=== PATIENT | male | born 1940 | race Caucasian/White ===

== ENCOUNTER 2018-06-20 19:18 | Inpatient (IN) | payer OTHER ==
[~2018-06-20] VITALS: Ht 180.3 cm; Wt 78.0 kg
[~2018-06-20 19:18] MED LIST: ASPI81CH PO; ATOR40TA PO; CARV3.125 PO; LISI5 PO; Novolog100 UNIT/1 SC; Prinivil10 MG PO; UNKNOWN BP MED; ZESTRIL PO; [UNRECOGNIZED DRUG - REMARK]
[2018-06-20 20:33] LABS: BASOPHILS ABSOLUTE AUTO 0.03 K/mm3 (0.00-0.23); BASOPHILS PERCENT AUTO 0 % (0-2); EOSINOPHILS ABSOLUTE AUTO 0.03 K/mm3 (0.00-0.68); EOSINOPHILS PERCENT AUTO 0 % (0-6); Hematocrit 49.9 % (37.0-53.0); Hemoglobin 16.1 g/dL (13.5-17.5); IMMATURE GRAN ABSOLUTE AUTO 0.05 K/mm3 (0.00-0.10); IMMATURE GRAN PERCENT AUTO 0 % (0-1); LYMPHOCYTES ABSOLUTE AUTO 1.15 K/mm3 (0.84-5.20); LYMPHOCYTES PERCENT AUTO 8 % (21-46); MONOCYTES ABSOLUTE AUTO 0.86 K/mm3 (0.16-1.47); MONOCYTES PERCENT AUTO 6 % (4-13); Mean Corpuscular HGB 32.7 pg (26.0-34.0); Mean Corpuscular HGB Conc 32.3 g/dL (31.5-36.5); Mean Corpuscular Volume 101 fL (80-100); Mean Platelet Volume 9.8 fL (9.1-12.4); NEUTROPHILS ABSOLUTE AUTO 11.99 K/mm3 (1.96-9.15); NEUTROPHILS PERCENT AUTO 85 % (41-73); Platelet Count 214 K/mm3 (150-400); RDW Coefficient Variation 12.3 % (11.7-14.2); RDW Standard Deviation 46.4 fL (35.1-46.3); Red Blood Cell Count 4.93 M/mm3 (4.30-5.90); White Blood Cell Count 14.11 K/mm3 (4.00-11.30)
[2018-06-20 20:59] LABS: Alanine Aminotransfer (ALT/SGP 27 U/L (12-78); Albumin, Blood 4.4 g/dL (3.4-5.0); Albumin/Globulin Ratio 1.3 (0.8-1.8); Alk Phos 142 U/L (50-136); Anion Gap 20 mmol/L (6-16); Aspartate Aminotrans (AST/SGOT 18 U/L (12-37); Bilirubin, Total 1.1 mg/dL (0.1-1.0); Blood Urea Nitrogen 25 mg/dL (8-24); Bun/Creatinine Ratio 18.2 (12.0-20.0); CO2, Blood 16 mmol/L (21-32); Calcium, Blood 9.1 mg/dL (8.5-10.1); Chloride, Blood 97 mmol/L (98-108); Creatinine, Blood 1.37 mg/dL (0.60-1.20); Globulin, Blood 3.3 g/dL (2.2-4.0); Glomerular Filtration Rate 54 (60-); Glucose, Blood 526 mg/dL (70-99); Sodium, Blood 133 mmol/L (136-145); Total Protein, Blood 7.7 g/dL (6.4-8.2); Troponin I <0.015 ng/mL (0.000-0.040)
[2018-06-20 21:15] LABS: Beta-hydroxybutyrate 67.6 mg/dL (0.2-2.8)
[2018-06-20 22:37] LABS: Base Excess Venous -16.3 mmol/L; Bicarbonate Venous 13.1 mmol/L (24.0-30.0); PCO2 Venous 35.8 mmHg (38-42); pH Blood Venous 7.15 (7.34-7.37)
--- NOTE | 2018-06-21 01:51 | NUR ---
ASSUMING CARE RECEIVED PT REPORT FROM ER, RN. PT IS BEING ADMITTED DUE TO DKA. PT IS ALERT AND ORIENTED AT THE TIME OF ARRIVAL TO THE UNIT. PT WAS TRASFERED TO UNIT VIA STRETCHER. PT ABLE TO TRANSFER SELF TO ICU BED WITH MINIMAL ASSISTANCE. AT THE TIME OF ARRIVAL TO UNIT PT IS COMPLETING 2ND BOLUS OF NS. AFTER COMPLETION OF BOLUS NS WAS STARTED AT 100ML/HR. INSULIN GTT IS SET FOR 4UNITS/HR AT THE TIME OF ARRIVAL TO THE UNIT. PT IS ON ROOM AIR WITH SPO2 MAINTAINING IN THE HIGH 90'S. PT IS IN NSR TO SINUS TACH IN THE 100'S AT THIS TIME. PT APPEARS TO HAVE A MURRMUR. ALL PULSES PRESENT PALPABLE AND EQUAL. PT BP IS IN THE 110-130'S AT THIS TIME. PER REPORT PT WAS NAUSEOUS IN THE ER AND PROVIDED ZOFRAN AND REGLAN. PT DENIES NAUSEA AT THIS TIME. PT WAS PROVIDED FUL VACCINE SHORTLY AFTER ARRIVAL TO THE UNIT. ADMIT HX, MED REC, AND ADMISSION ASSESSMENT COMPLETE. ASSUMED CARE OF PT AT THE TIME OF ARRIVAL TO THE UNIT. WILL CONTINUE TO MONITOR PT.
[2018-06-21 03:37] LABS: Source, Urine Clean Catch
[2018-06-21 03:39] LABS: Bilirubin, Urine Neg (Neg); Blood, Urine 1+ (Neg); Glucose Qualitative, Urine 4+ (Neg); Ketones, Urine 4+ (Neg); Leukocyte Esterase, Urine Neg (Neg); Nitrite, Urine Neg (Neg); Protein, Urine 2+ (Neg); Specific Gravity, Urine 1.025 (1.003-1.022); Urobilinogen, Urine NORM (Normal)
[2018-06-21 03:54] LABS: Appearance, Urine Clear (Clear); Color, Urine Yellow (P-Yellow)
[2018-06-21 03:55] LABS: Bacteria Rare /hpf; Mucus Light (0-Heavy); Red Blood Cells, Urine 0-2 /hpf (0-2); Squamous Epithelial Cells Not Seen /hpf (Few); White Blood Cells, Urine 0-2 /hpf (0-5)
--- NOTE | 2018-06-21 04:38 | NUR ---
FLUID CHANGE. PT CBG WAS 227 AT APPROX 0425. PT NS AT 100 WAS REDUCED TO TKO FOR INFUSION OF INSULIN AND D5 1/2 NS WAS STARTED AT 75ML/HR PER ORDERS. PT INSULIN WAS DECREASED FROM 4 TO 2. WILL CONTINUE TO MONITOR PT.
[2018-06-21 04:48] LABS: Hematocrit 40.2 % (37.0-53.0); Hemoglobin 13.5 g/dL (13.5-17.5); Mean Corpuscular HGB 33.1 pg (26.0-34.0); Mean Corpuscular HGB Conc 33.6 g/dL (31.5-36.5); Mean Corpuscular Volume 99 fL (80-100); Mean Platelet Volume 9.3 fL (9.1-12.4); Platelet Count 169 K/mm3 (150-400); RDW Coefficient Variation 12.4 % (11.7-14.2); RDW Standard Deviation 45.2 fL (35.1-46.3); Red Blood Cell Count 4.08 M/mm3 (4.30-5.90)
[2018-06-21 05:08] LABS: Albumin, Blood 3.4 g/dL (3.4-5.0); Albumin/Globulin Ratio 1.3 (0.8-1.8); Bilirubin, Total 0.6 mg/dL (0.1-1.0); Calcium, Blood 7.9 mg/dL (8.5-10.1); Creatinine, Blood 1.35 mg/dL (0.60-1.20); Globulin, Blood 2.7 g/dL (2.2-4.0); Potassium, Blood 4.4 mmol/L (3.5-5.5); Total Protein, Blood 6.1 g/dL (6.4-8.2)
[2018-06-21 05:17] LABS: Troponin I 1.07 ng/mL (0.000-0.040)
--- NOTE | 2018-06-21 06:08 | NUR ---
SHIFT SUMMARY NOTE PT HAS REMAINED ALERT AND ORIENTED THROUGHOUT THE NIGHT WHILE AWAKE. PT REMAINS ON INSULIN GTT AT THIS TIME. INSULIN GTT IS CURRENTLY RUNNING AT 2.5 U/HR. PT IS RECEIVING D5 1/2 NS AT A RATE OF 75ML/HR. WITH MORNING LABS A CRITICAL HIGH TROPONIN AT 1.[address] KRISHNAMURTHY CALLED AND INFORMED OF TROPONIN. INSTRUCTIONS RECEIVED TO ENSURE THAT 2D ECHO ORDER IS IN PLACE. 2D ECHO ORDER IS IN PLACE IN CHART AT THIS TIME. PT STATES THAT HE "FEELS A LOT BETTER" THAN HE DID WHEN HE FIRST CAME TO THE HOSPITAL. PT DENIES ANY ONGOING NAUSEA OR PAIN AT THIS TIME. PT HAS REMAINED ABLE TO REPOSITION SELF IN BED WITHOUT ASSISTANCE AND MAKE NEEDS KNOWN. WILL REPORT OFF TO ONCOMING DAY SHIFT NURSE.
--- NOTE | 2018-06-21 09:32 | NUR ---
PT RESTING W/O CARDICA, GI OR RESP. DISTRESS. PT IS SETTING UP EATING. HAS HAD ECHOCARD. VSS.
--- NOTE | 2018-06-21 12:14 | NUR ---
Echocardiogram completed.
[2018-06-21 13:06] LABS: Troponin I 2.4 ng/mL (0.000-0.040)
[2018-06-21 16:06] LABS: International Normalized Ratio 1.05; Prothrombin Time Results 10.8 Sec (9.7-11.5)
--- NOTE | 2018-06-21 18:39 | NUR ---
PT HAS COVERED CARB COUNT PER PERSONAL PUMP THIS MEAL. PT HAS NOT HAD ANY CP THIS SHIFT AND VSS. HEPARIN GTT AT 13U, D51/2 AT 75, INSULIN GTT WAS REMOVED AT 1700 WIHT CBG OF 85 AND PERSONAL PUMP STARTED SHORTLY AFTER. PT HAS BEEN EXPLAINED COOPERATIVE METHOD OF MANNAGING BLOOD SUGARS IN HOSP. PT HAS BEEN VERY A/O AND PLEASANT THIS SHIFT. WAS IN TO DELIVER INSULIN PUMP TUBING.
--- NOTE | 2018-06-21 19:06 | NUR ---
Mr. Castaneda has a rohit arley that brings him hope/comfort. He tells me he understands what brought him here and knows what needs to happen to prevent re-hospitalization. His was present and appears loving and supportive. No fears or concerns presented. Both were appreciaitive of prayer and gentle spiritual direction. I will remain available.
--- NOTE | 2018-06-21 20:18 | NUR ---
ASSUMED CARE OF PT. REPORT RECEIVED AT BEDSIDE. PT PRESENTS IN BED. ALERT AND ORIENTED. PLEASANT AND COOPERATIVE WITH CARE AND ASSESSMENT. PT UP TO TOILET TO ATTEMPT BM. NO CHEST PAIN OR PRESSURE. NO VERTIGO OR DYSPNEA. PT VOIDS Q.S. SPOT CHECK OF BLOOD GLUCOSE 240. WILL RECHECK AT HS AND TREAT ACCORDINGLY. PT HAS BASAL RATE ON INSULIN PUMP ACTIVATED. PT ALSO RECEIVING LAST OF 2 LITERS D5 1/2 NS. WILL CONTINUE TO MONITOR PT. WILL REVIEW CHART AND PLAN OF CARE FOR THIS PT.
--- NOTE | 2018-06-22 01:29 | NUR ---
PT HAS BEEN UP TO COMMODE SEVERAL TIMES THIS EVENING. HAS NOT HAD ANY COMPLAINTS OF CHEST PAIN OR PRESSURE. CONTINUES ON HEPARIN DRIP ORDERED. NO S/S BLEEDING TO NOTE. PT HAS NO COMPLAINTS OF DYSPNEA OR VERTIGO. PT CONTINUES WITH INSULIN PUMP AT HIS BASAL RATE. HAVE COVERED ELEVATED BLOOD GLUCOSE WITH S/S INSULIN. TEACHING DONE ON DIABETES AND MEAL PLANNING. ALSO DISCUSSED HIS PROPOSED STRESS TEST. NPO AFTER MIDNIGHT. PT AWARE AND IS IN AGREEMENT. WILL CONTINUE TO MONITOR PT. NO CHANGES NOTED PER CARDIAC MONITORING.
--- NOTE | 2018-06-22 03:51 | NUR ---
UNFORTUNATELY, PT WAS INCONTINENT IN BED. HE STATES THIS OCCURS OCCASSIONALY SINCE HE HAD PROSTATE SURGERY. DOES HAVE SOME ISSUES WITH MANAGING HIS IV'S AND CARDIAC LEADS. ASSISTED PT. AGAIN DID SPOT CHECK OF BLOOD GLUCOSE. SEE FLOWSHEET. PT CONTINUES WITHOUT CHEST PAIN OR PRESSURE.
--- NOTE | 2018-06-22 05:23 | NUR ---
PT HAS MAINTAINED THROUGHOUT THE NIGHT OFF INSULIN DRIP. SEE LAB FLOWSHEET FOR GLUCOSE VALUES. PT TEACHING HAS BEEN DONE CONCERNING DIABETES, INSULIN INTERVENTION, AND HEPARIN DRIP. PT CONTINUES ON HEPARIN WITHOUT SIGNS OF BLEEDING. PT TO HAVE STRESS TEST THIS AM. HAS BEEN NPO SINCE 2400. NO COMPLAINTS OF CHEST PAIN OR PRESSURE. WILL CONTINUE TO MONITOR PT, AND WILL REPORT OFF TO ONCOMING RN.
[2018-06-22 05:30] LABS: BASOPHILS ABSOLUTE AUTO 0.02 K/mm3 (0.00-0.23); BASOPHILS PERCENT AUTO 0 % (0-2); EOSINOPHILS ABSOLUTE AUTO 0.17 K/mm3 (0.00-0.68); EOSINOPHILS PERCENT AUTO 2 % (0-6); Hematocrit 38.3 % (37.0-53.0); Hemoglobin 12.6 g/dL (13.5-17.5); IMMATURE GRAN ABSOLUTE AUTO 0.02 K/mm3 (0.00-0.10); IMMATURE GRAN PERCENT AUTO 0 % (0-1); LYMPHOCYTES ABSOLUTE AUTO 1.92 K/mm3 (0.84-5.20); LYMPHOCYTES PERCENT AUTO 25 % (21-46); MONOCYTES ABSOLUTE AUTO 0.59 K/mm3 (0.16-1.47); MONOCYTES PERCENT AUTO 8 % (4-13); Mean Corpuscular HGB 32.1 pg (26.0-34.0); Mean Corpuscular HGB Conc 32.9 g/dL (31.5-36.5); Mean Corpuscular Volume 98 fL (80-100); Mean Platelet Volume 9.3 fL (9.1-12.4); NEUTROPHILS ABSOLUTE AUTO 5.06 K/mm3 (1.96-9.15); NEUTROPHILS PERCENT AUTO 65 % (41-73); Platelet Count 144 K/mm3 (150-400); RDW Coefficient Variation 12.8 % (11.7-14.2); RDW Standard Deviation 45.7 fL (35.1-46.3); Red Blood Cell Count 3.92 M/mm3 (4.30-5.90); White Blood Cell Count 7.78 K/mm3 (4.00-11.30)
[2018-06-22 05:58] LABS: Anion Gap 7 mmol/L (6-16); Blood Urea Nitrogen 25 mg/dL (8-24); CO2, Blood 25 mmol/L (21-32); Calcium, Blood 7.8 mg/dL (8.5-10.1); Chloride, Blood 109 mmol/L (98-108); Creatinine, Blood 1.19 mg/dL (0.60-1.20); Glomerular Filtration Rate >60 (60-); Glucose, Blood 178 mg/dL (70-99); Phosphorus, Blood 3.2 mg/dL (2.5-4.9); Potassium, Blood 4.5 mmol/L (3.5-5.5); Sodium, Blood 141 mmol/L (136-145)
[2018-06-22 06:18] LABS: Troponin I 0.984 ng/mL (0.000-0.040)
--- NOTE | 2018-06-22 09:39 | NUR ---
PTHAS BEEN A/O. NUC. MED HAS BEEN IN AT [id number] TO INJECT FOR STRESS TEST. PT DENIES PAIN OR DISTRESS OTHER THAN OVER CBG CHALLENGES. PT VS NOTED.
--- NOTE | 2018-06-22 10:00 | NUR ---
PT CHANGED TO PCU STATUS AND W/C DOWN TO NUC. MED. PER ZAK. PT REMAINS ON HEPARIN GTT AT 14UNITS.
--- NOTE | 2018-06-22 14:15 | NUR ---
PT HAS BEEN RESTING WELL THIS DAY AND IS CURRENTLY IN BED WAITING FOR NUC MED STUDY. PT HAS BEEN IN CHAIR AND HAS DONE WELL. CBG STATUS NOTED AND WILL FOLLOW ABLE TO ASSIST.
--- NOTE | 2018-06-22 15:02 | NUR ---
PT EDUCATION RE SLIDING SCALE AND PT PUMP DOSING DISCUSSED TO ASSIST PT WITH LONG RANGE TREATMENT AND CORRECTION UNDERSTANDING.
--- NOTE | 2018-06-22 16:41 | NUR ---
PT RETURNED APPROX 1600 FROM NUC. MED SCREEN VIA W/C AND VSS AND RESTING W/O DISTRESS IN CHAIR. IS IN TO VISIT.
--- NOTE | 2018-06-22 18:20 | NUR ---
PT SETTING UP EATING. NO SS INSULIN OR EXTRA TIDM INSULIN GIVEN DUE TO CHANGES IN MEAL SCHEDULE AND TIMES TODAY. PT COVERED MEAL WITH BASAL INSULIN DOSE AND CARB COUNT INSULIN COVERAGE PER PUMP. VSS AND PT HAS BEEN A/O ALL DAY AWAIING ONE DAY STRESS TEST COMPLETION AND RESULTS OF SAME. IS IN TO VISIT.
--- NOTE | 2018-06-22 20:00 | NUR ---
ASSUMED CARE OF PT. REPORT RECEIVED. PT PRESENT IN BED ASLEEP. WILL DEFER ASSESSMENT FOR SHORT PERIOD SO PT CAN REST. PT DID NOT SLEEP WELL PREVIOUS NIGHT. WILL REVIEW CHART AND PLAN OF CARE FOR THIS PT.
--- NOTE | 2018-06-22 22:24 | NUR ---
WHILE VISITING WITH PT AFTER GLUCOSE CHECK PT WAS GIVEN SNACK OF HALF SANDWHICH AND SUGAR FREE TAPIOCCA. PT WAS SWALLOWING A BITE OF SANDWHICH, AND HE FELT HE GOT 'IT STUCK' FOR A MOMENT. COUGHED AND WAS ABLE TO CLEAR AND COMPLETE SWALLOW. INTERESTINGLY DURING THIS TIME, PT DID TRAVIS DOWN TO MID 30'S. PT STATED HE FELT THIS CHEST PRESSURE. PT QUICKLY RECOVERED WITHOUT INTERVENTION AND IS CURRENTLY BACK TO BASELINE. REMAINS IN SINUS RHYTHM WITH OCCASSIONAL PVC. WILL CONTINUE TO MONITOR.
--- NOTE | 2018-06-23 05:36 | NUR ---
PT HAS BEEN ABLE TO REST THROUGH THE NIGHT. DID DO A SPOT CHECK ON GLUCOSE LEVEL REVEALS 219. HAVE DONE MUCH TEACHING ON DIABETES WELL NSTEMI AND POSSIBLE PLAN FOR HIM TO HAVE ANGIOPLASTY. PT STATES HE IS IN BETTER UNDERSTANDING OF WHAT MAY NEED TO TAKE PLACE FOR FURTHER INTERVENTION. WILL CONTINUE TO MONITOR PT, AND WILL GIVE REPORT TO DAREN STERN FOR TRANSFER TO PCU 16. PT MADE AWARE OF PENDING TRANSFER AND IS IN AGREEMENT.
--- NOTE | 2018-06-23 07:17 | NUR ---
SHIFT SUMMARY PATIENT CHEEFUL UPON TRANSFER TO THE FLOOR. REPORT RECIEVED FROM DAREN MARR AT APPROX 0600. PATIENT TRANSFERED TO THE FLOOR SHORTLY AFTER. PATIENT ABLE TO TRANSFER SELF FROM THE WHEELCHAIR TO THE BED. PATIENT ORIENTED TO THE NEW ROOM, UNIT, AND CALL LIGHT. HEPARIN GTT RUNNING PER ORDERS. REPORT GIVEN TO ONCOMING RN.
--- NOTE | 2018-06-23 07:32 | NUR ---
NURSING PCU DAYSHIFT: Assumed care of pt at approx 0700. A/O, pleasant, coopertive w/care. Denies any pain/discomfort. Able to ambulate independently w/o difficulty. Skin is intact w/no breakdown noted. Tele in place, NSR/SB w/first degree block, no c/o CP/pressure, SBP 150's, no noted edema. L/S cta t/o, O2 sat upper 90's on RA, denies dypsnea, no noted cough. Abd SNT, BT+, voiding w/o difficulty per pt. PIV x2, hep gtt infusing as per pharmacy dosing. No s/s of acute distress at this time. Call light in reach and pt is able to use w/o difficulty. Pt had questions regarding insulin dosing, education provided, denies additional questions/needs at this time. Awaiting rounding from PMD, cont to monitor for changes.
[2018-06-23 07:53] LABS: BASOPHILS ABSOLUTE AUTO 0.02 K/mm3 (0.00-0.23); BASOPHILS PERCENT AUTO 0 % (0-2); EOSINOPHILS ABSOLUTE AUTO 0.16 K/mm3 (0.00-0.68); EOSINOPHILS PERCENT AUTO 3 % (0-6); Hematocrit 40.1 % (37.0-53.0); Hemoglobin 13.4 g/dL (13.5-17.5); IMMATURE GRAN ABSOLUTE AUTO 0.01 K/mm3 (0.00-0.10); IMMATURE GRAN PERCENT AUTO 0 % (0-1); LYMPHOCYTES ABSOLUTE AUTO 1.45 K/mm3 (0.84-5.20); LYMPHOCYTES PERCENT AUTO 31 % (21-46); MONOCYTES ABSOLUTE AUTO 0.41 K/mm3 (0.16-1.47); MONOCYTES PERCENT AUTO 9 % (4-13); Mean Corpuscular HGB 32.4 pg (26.0-34.0); Mean Corpuscular HGB Conc 33.4 g/dL (31.5-36.5); Mean Corpuscular Volume 97 fL (80-100); Mean Platelet Volume 9.8 fL (9.1-12.4); NEUTROPHILS ABSOLUTE AUTO 2.66 K/mm3 (1.96-9.15); NEUTROPHILS PERCENT AUTO 57 % (41-73); Platelet Count 151 K/mm3 (150-400); RDW Coefficient Variation 12.5 % (11.7-14.2); RDW Standard Deviation 45.1 fL (35.1-46.3); Red Blood Cell Count 4.13 M/mm3 (4.30-5.90); White Blood Cell Count 4.71 K/mm3 (4.00-11.30)
[2018-06-23 08:10] LABS: Albumin, Blood 3.1 g/dL (3.4-5.0); Anion Gap 6 mmol/L (6-16); Blood Urea Nitrogen 20 mg/dL (8-24); Bun/Creatinine Ratio 19.2 (12.0-20.0); CO2, Blood 28 mmol/L (21-32); Calcium, Blood 8.3 mg/dL (8.5-10.1); Chloride, Blood 106 mmol/L (98-108); Creatinine, Blood 1.04 mg/dL (0.60-1.20); Glomerular Filtration Rate >60 (60-); Glucose, Blood 234 mg/dL (70-99); Phosphorus, Blood 3.4 mg/dL (2.5-4.9); Potassium, Blood 4.5 mmol/L (3.5-5.5); Sodium, Blood 140 mmol/L (136-145)
[2018-06-23 08:18] LABS: Troponin I 0.636 ng/mL (0.000-0.040)
[2018-06-23] MEDS ORDERED: CLOP75 PO (09:57)
[2018-06-23] MEDS ORDERED: BISA10S PR (09:57)
[2018-06-23] MEDS ORDERED: DOCU100 PO (09:59)
[2018-06-23] MEDS ORDERED: INSR10I SC ×2 (10:00→10:02)
[2018-06-23] MEDS ORDERED: NITR.4SL SL (10:04)
[2018-06-23] MEDS ORDERED: METO5A PO (10:05)
[2018-06-23] MEDS ORDERED: Zofran4 MG PO (10:06)
--- NOTE | 2018-06-23 10:43 | NUR ---
NURSING PCU DISCHARGE SUMMARY: No acute changes noted t/o the a.m. Cleared by cardiology, seen by PMD, discharge home d/o received. Rx's faxed to [facility], f/u appts scheduled. Hep gtt discontinued, PIV dc'd w/cath intact. No s/s of acute distress at this time, cont to monitor until discharge is complete.
--- NOTE | 2018-06-23 13:28 | NUR ---
Spiritual care visit conducted. Pateint was in the process of being discharged and I introduced myself and we had a great visit. Patient said that the care he received at [facility] was exceptional and that the kindness and care he was given was "over the top." I conducted a life review, explored spiritual beliefs, reinforced helpful attitudes and practices and provided prayer. Patient expressed gratitude and showed signs of an elevated mood.
== END 2018-06-23 13:45 | disposition home or self-care (01) | DRG 637 ==
LOC: ER 19:18 → ICUW 22:57 → ICUE 22:57 → PCU 06-23 06:30
PROVIDERS: Emergency Medicine; Family Medicine; ADMIT Internal Medicine
PROC: 3E0234Z Introduction of Serum, Toxoid and Vaccine into Muscle, Percutaneous Approach (ICD-10-PCS; principal; 2018-06-21)
DX: E10.10 Type 1 diabetes mellitus with ketoacidosis without coma (principal); I21.4 Non-ST elevation (NSTEMI) myocardial infarction; I10 Essential (primary) hypertension; Z23 Encounter for immunization; I25.10 Atherosclerotic heart disease of native coronary artery without angina pectoris; E78.5 Hyperlipidemia, unspecified; E10.40 Type 1 diabetes mellitus with diabetic neuropathy, unspecified; E86.0 Dehydration; R01.1 Cardiac murmur, unspecified; M54.30 Sciatica, unspecified side; D69.6 Thrombocytopenia, unspecified; Z96.41 Presence of insulin pump (external) (internal); Z79.82 Long term (current) use of aspirin
CPT/HCPCS: 36415; 71046; 78452; 80053; 80069; 81001; 82010; 82550; 82803; 82947; 84484; 85025; 85027; 85610; 85730; 90686; 93005; 93010; 93017; 93306; 96361; 96374; 96375; 99285-25; A9500; J0706; J1644; J1650; J1815; J2405; J2765; J2785; J7030; J7042

== ENCOUNTER 2020-08-15 20:36 | Inpatient (IN) | payer OTHER, MEDICARE ==
[~2020-08-15] VITALS: Ht 188 cm; Wt 99.8 kg
[~2020-08-15 20:36] MED LIST changes: +BISA10S PR; +CLOP75 PO; +DOCU100 PO; +INSR10I SC; +METO5A PO; +NITR.4SL SL; +Zofran4 MG PO
[2020-08-15 20:55] LABS: Calcium, Ionized (POC) 1.08 mmol/L (1.10-1.46); Chloride (POC) 103 mmol/L (98-108); Creatinine (POC) 1.3 mg/dL (0.8-1.3); Glucose (ISTAT POC) 285 mg/dL (70-99); Potassium (POC) 4.1 mmol/L (3.5-5.5); Sodium (POC) 135 mmol/L (135-148); Total CO2 (POC) 20 mmol/L (21-32)
[2020-08-15 21:07] LABS: BASOPHILS ABSOLUTE AUTO 0.08 K/mm3 (0.00-0.23); BASOPHILS PERCENT AUTO 1 % (0-2); EOSINOPHILS ABSOLUTE AUTO 0.09 K/mm3 (0.00-0.68); EOSINOPHILS PERCENT AUTO 1 % (0-6); Hematocrit 50.5 % (37.0-53.0); Hemoglobin 16.4 g/dL (13.5-17.5); IMMATURE GRAN ABSOLUTE AUTO 0.54 K/mm3 (0.00-0.10); IMMATURE GRAN PERCENT AUTO 4 % (0-1); LYMPHOCYTES ABSOLUTE AUTO 7.81 K/mm3 (0.84-5.20); LYMPHOCYTES PERCENT AUTO 63 % (21-46); MONOCYTES ABSOLUTE AUTO 0.36 K/mm3 (0.16-1.47); MONOCYTES PERCENT AUTO 3 % (4-13); Mean Corpuscular HGB 32.8 pg (26.0-34.0); Mean Corpuscular HGB Conc 32.5 g/dL (31.5-36.5); Mean Corpuscular Volume 101 fL (80-100); Mean Platelet Volume 10.1 fL (9.1-12.4); NEUTROPHILS ABSOLUTE AUTO 3.52 K/mm3 (1.96-9.15); NEUTROPHILS PERCENT AUTO 28 % (41-73); NRBC ABSOLUTE 0.07 K/mm3 (0.00-0.02); NRBC Auto 0.6 /100 WBC (0.0-0.2); Platelet Count 133 K/mm3 (150-400); RDW Coefficient Variation 12.7 % (11.7-14.2); RDW Standard Deviation 47.6 fL (35.1-46.3)
[2020-08-15 21:19] LABS: Magnesium, Blood 2.7 mg/dL (1.6-2.4)
[2020-08-15 21:21] LABS: Alanine Aminotransfer (ALT/SGP 234 U/L (12-78); Albumin, Blood 3.2 g/dL (3.4-5.0); Albumin/Globulin Ratio 0.9 (0.8-1.8); Alk Phos 162 U/L (50-136); Anion Gap 15 mmol/L (6-16); Aspartate Aminotrans (AST/SGOT 322 U/L (12-37); Bilirubin, Total 0.7 mg/dL (0.1-1.0); Blood Urea Nitrogen 22 mg/dL (8-24); Bun/Creatinine Ratio 20.8 (12.0-20.0); CO2, Blood 16 mmol/L (21-32); Calcium, Blood 8.1 mg/dL (8.5-10.1); Chloride, Blood 105 mmol/L (98-108); Creatinine, Blood 1.06 mg/dL (0.60-1.20); Globulin, Blood 3.5 g/dL (2.2-4.0); Glomerular Filtration Rate >60 (60-); Glucose, Blood 287 mg/dL (70-99); Potassium, Blood 4.4 mmol/L (3.5-5.5); Sodium, Blood 136 mmol/L (136-145); Total Protein, Blood 6.7 g/dL (6.4-8.2)
[2020-08-15 21:22] LABS: International Normalized Ratio 1.12; Prothrombin Time Results 11.9 Sec (9.7-11.5)
[2020-08-15 21:42] LABS: PCO2 Arterial 45.6 mmHg (35-45); PO2 Arterial 65.6 mmHg (80-100); pH Blood Arterial 7.14 (7.35-7.45)
== END 2020-08-16 00:13 | DRG 215 ==
LOC: ER 20:36 → ICUW 21:20
PROVIDERS: Emergency Medicine; ADMIT Internal Medicine
PROC: 5A1935Z Respiratory Ventilation, Less than 24 Consecutive Hours (ICD-10-PCS; principal; 2020-08-15)
PROC: 02HA3RZ Insertion of Short-term External Heart Assist System into Heart, Percutaneous Approach (ICD-10-PCS; 2020-08-15)
PROC: 5A0221D Assistance with Cardiac Output using Impeller Pump, Continuous (ICD-10-PCS; 2020-08-15)
PROC: 027135Z Dilation of Coronary Artery, Two Arteries with Two Drug-eluting Intraluminal Devices, Percutaneous Approach (ICD-10-PCS; 2020-08-15)
PROC: 5A12012 Performance of Cardiac Output, Single, Manual (ICD-10-PCS; 2020-08-15)
PROC: 4A023N7 Measurement of Cardiac Sampling and Pressure, Left Heart, Percutaneous Approach (ICD-10-PCS; 2020-08-15)
PROC: B2111ZZ Fluoroscopy of Multiple Coronary Arteries using Low Osmolar Contrast (ICD-10-PCS; 2020-08-15)
PROC: 3E033XZ Introduction of Vasopressor into Peripheral Vein, Percutaneous Approach (ICD-10-PCS; 2020-08-15)
PROC: 0W9930Z Drainage of Right Pleural Cavity with Drainage Device, Percutaneous Approach (ICD-10-PCS; 2020-08-16)
DX: I21.3 ST elevation (STEMI) myocardial infarction of unspecified site (principal); J96.01 Acute respiratory failure with hypoxia; I47.2 Ventricular tachycardia; J93.9 Pneumothorax, unspecified; R57.0 Cardiogenic shock; I25.2 Old myocardial infarction; Z79.4 Long term (current) use of insulin; Z79.899 Other long term (current) drug therapy; Z79.82 Long term (current) use of aspirin; I25.10 Atherosclerotic heart disease of native coronary artery without angina pectoris; I44.7 Left bundle-branch block, unspecified; I10 Essential (primary) hypertension; E78.5 Hyperlipidemia, unspecified; E10.40 Type 1 diabetes mellitus with diabetic neuropathy, unspecified; Z85.828 Personal history of other malignant neoplasm of skin; Z90.49 Acquired absence of other specified parts of digestive tract; Z98.890 Other specified postprocedural states; I50.9 Heart failure, unspecified; I46.2 Cardiac arrest due to underlying cardiac condition; I49.01 Ventricular fibrillation; Z79.02 Long term (current) use of antithrombotics/antiplatelets; Z87.891 Personal history of nicotine dependence
CPT/HCPCS: 31720; 32551; 33990; 36415; 36556; 36600; 51702; 71045; 76937; 80047; 80053; 82803; 83605; 83690; 83735; 83880; 84484; 85014; 85025; 85347; 85610; 87040; 92950; 93005; 93010; 93458; 94002; 96374-59; 96375-59; 99291-25; A9270; C1725; C1769; C1874; C1887; C1894; C9606; G0278; J0171; J0282; J1265; J1644; J2250; J2370; J3010; J3246; J3475; J7030; J7040; J7060; Q9967